=== PATIENT | male | born 1955 | race Caucasian/White ===

== ENCOUNTER 2019-03-25 04:51 | Inpatient (IN) ==
[2019-03-18 16:18] LABS: Appearance,Urine CLEAR; Bilirubin,Urine NEG (NEG); Color,Urine YELLOW; Glucose,Urine (UA) NEGATIVE (NEG); Ketones,Urine NEG (NEG); Leukocyte Esterase,Urine NEG /uL (NEG); Nitrate,Urine NEG (NEG); Protein,Urine NEG (NEG); Specific Gravity,Urine 1.024 (1.000-1.035); Urine Blood NEG mg/dL (<0.03); Urobilinogen,Urine NEG (NEG)
[2019-03-18 17:09] LABS: Basophils # (Auto) 0 K/mcL (0.0-0.3); Basophils % (Auto) 0.5 % (0.0-2.0); Eosinophils # (Auto) 0.1 K/mcL (0.0-0.7); Eosinophils % (Auto) 1.8 % (0.0-7.0); Hematocrit 43.2 % (41.0-55.0); Hemoglobin 14.5 g/dL (13.5-16.5); Lymphocytes # (Auto) 1.6 K/mcL (1.5-4.8); Lymphocytes % (Auto) 22.4 % (15.5-49.0); Mean Cell Volume 89.2 fL (80.0-100.0); Mean Corpuscular HGB Conc 33.6 g/dL (31.0-36.0); Mean Platelet Volume 8.1 fL (7.4-10.4); Monocytes # (Auto) 0.5 K/mcL (0.1-0.9); Monocytes % (Auto) 7.3 % (1.0-12.0); Platelet Count 232 K/mcL (140-440); RBC 4.85 M/mcL (4.50-5.90); Red Cell Distribution Width 12.8 % (11.5-14.5)
[2019-03-18 17:12] LABS: Blood Urea Nitrogen 21 mg/dl (8-23); Calcium 9.7 mg/dl (8.6-10.4); Carbon Dioxide 29 mmol/L (22-30); Chloride 101 mmol/L (96-108); Glomerular Filtration Rate 79; Glucose 135 mg/dL (70-105)
[2019-03-25] MEDS ORDERED: IPRATROPIUM/ALBUTEROL 3 ML AMPUL.NEB NEB PRN ×2 (05:00→08:47)
[2019-03-25] MEDS ORDERED: SCOPOLAMINE 1 PATCH PATCH TOPICAL PRN (05:00)
[2019-03-25 05:27] LABS: POC Blood Urea Nitrogen 21 mg/dl (8-23); POC CO2 27 mmol/L (22-30); POC Calcium, Ionized 1.15 mmol/L (1.16-1.32); POC Chloride 101 mmol/L (96-108); POC Glucose, Random 116 mg/dL (70-105); POC Potassium 3.4 mmol/L (3.3-5.1); POC Sodium 139 mmol/L (133-145)
[2019-03-25] MEDS ORDERED: ceFAZolin 2 GM in DEXTROSE 5% IN WATER 50 ML IV SCH (06:00)
[2019-03-25] MEDS ORDERED: CELECOXIB 200 MG CAPSULE PO SCH (06:00)
[2019-03-25] MEDS ORDERED: oxyCODONE 10 MG TAB.ER.12H PO SCH (06:00)
[2019-03-25] MEDS ORDERED: PREGABALIN 75 MG CAPSULE PO SCH (06:00)
[2019-03-25] MEDS ORDERED: GLYCOPYRROLATE 0.2 MG/ML VIAL IV ONE (07:35)
[2019-03-25] MEDS ORDERED: NALBUPHINE 10 MG/ML AMPUL IV ONE (07:35)
[2019-03-25] MEDS ORDERED: DEXAMETHASONE 10 MG/ML VIAL IV ONE (07:35)
[2019-03-25] MEDS ORDERED: MIDAZOLAM 5 MG/5 ML VIAL IV ONE (07:35)
[2019-03-25] MEDS ORDERED: LIDOCAINE HCL/PF 100 MG/5 ML SYRINGE IV ONE (07:35)
[2019-03-25] MEDS ORDERED: SUCCINYLCHOLINE 20 MG/ML ML IV ONE (07:35)
[2019-03-25] MEDS ORDERED: fentaNYL 250 MCG/5 ML VIAL IV ONE (07:35)
[2019-03-25] MEDS ORDERED: ONDANSETRON 4 MG/2 ML VIAL IV ONE (07:35)
[2019-03-25] MEDS ORDERED: PROPOFOL 200 MG/20 ML VIAL IV ONE (07:35)
[2019-03-25] MEDS ORDERED: PHENYLEPHRINE 10 MG/ML VIAL IV ONE (07:35)
[2019-03-25] MEDS ORDERED: ePHEDrine 50 MG/ML AMPUL IV ONE (07:35)
[2019-03-25] MEDS ORDERED: ROPIVACAINE HCL/PF 30 ML VIAL IJ ONE (07:35)
[2019-03-25] MEDS ORDERED: TRANEXAMIC ACID 1,000 MG/10 ML VIAL IV ONE (07:35)
[2019-03-25] MEDS ORDERED: GENTAMICIN SULFATE 800 MG/20 ML VIAL IR ONE (08:35)
[2019-03-25] MEDS ORDERED: METHOCARBAMOL 1,000 MG/10 ML VIAL IV PRN (08:47)
[2019-03-25] MEDS ORDERED: METOPROLOL TARTRATE 5 MG/5 ML VIAL IV PRN (08:47)
[2019-03-25] MEDS ORDERED: ONDANSETRON 4 MG/2 ML VIAL IV PRN ×2 (08:47→09:42)
[2019-03-25] MEDS ORDERED: MEPERIDINE 25 MG/ML SYRINGE IV PRN (08:47)
[2019-03-25] MEDS ORDERED: ePHEDrine 50 MG/ML AMPUL IV PRN (08:47)
[2019-03-25] MEDS ORDERED: fentaNYL 100 MCG/2 ML VIAL IV PRN (08:47)
[2019-03-25] MEDS ORDERED: PROMETHAZINE 25 MG/ML VIAL IV PRN ×2 (08:47→19:27)
[2019-03-25] MEDS ORDERED: diphenhydrAMINE 50 MG/ML VIAL IV PRN (08:47)
[2019-03-25] MEDS ORDERED: HYDROmorphone 2 MG/ML VIAL IV PRN (08:47)
[2019-03-25] MEDS ORDERED: FLUMAZENIL 0.1 MG/ML ML IV PRN (08:47)
[2019-03-25] MEDS ORDERED: ACETAMINOPHEN 1,000 MG/100 ML BOTTLE IV ONE (08:47)
[2019-03-25] MEDS ORDERED: ATROPINE SULFATE 0.4 MG/ML VIAL IV PRN (08:47)
[2019-03-25] MEDS ORDERED: NALOXONE HCL 0.4 MG/ML VIAL IV PRN (08:47)
[2019-03-25] MEDS ORDERED: LACTATED RINGERS 1,000 ML IV SCH (09:00)
--- NOTE | 2019-03-25 09:40 | Brief Operative Note ---
Date of procedure: 03/25/19 Pre-op diagnosis: right shoulder osteoarthritis, biceps tendonitis Post-op diagnosis: same Procedure: right total shoulder arthroplasty, biceps tenodesis Grafts/Implants: No Anesthesia: GETA Complications: none Surgeon: Craig Brooks Jigsaw Operator: Maddi Pinon Estimated blood loss (cc): 150 Specimens Removed/Pathology: none sent Condition: stable Disposition: PACU
[2019-03-25] MEDS ORDERED: METHOCARBAMOL 750 MG TABLET PO PRN (09:42)
[2019-03-25] MEDS ORDERED: MAGNESIUM HYDROXIDE 30 ML ORAL.SUSP PO PRN (09:42)
[2019-03-25] MEDS ORDERED: ONDANSETRON 4 MG ODT TABLET SL PRN (09:42)
[2019-03-25] MEDS ORDERED: FLEETS ADULT ENEMA PR PRN (09:42)
[2019-03-25] MEDS ORDERED: BISACODYL 10 MG SUPP.RECT PR PRN (09:42)
[2019-03-25] MEDS ORDERED: BENZOCAINE/MENTHOL 1 LOZENGE PO PRN (09:42)
[2019-03-25] MEDS ORDERED: POLYETHYLENE GLYCOL 3350 17 GM PACKET PO PRN (09:42)
[2019-03-25] MEDS ORDERED: TRANEXAMIC ACID 1,000 MG/10 ML VIAL IV SCH (09:42)
--- NOTE | 2019-03-25 09:42 | Discharge Summary ---
Ortho Discharge - TSA - Patient Instructions Diet: Regular Diet Activity: non weight bearing Total Shoulder Protocol: Leave immobilizer in place except for bathing and ROM. Abduction pillow. Continue to wear sling until seen by physician. Codman Pendulum : These exercises use momentum produced by your body to move your shoulder joint. Bend your knees and shift your weight to your front leg, then back, allowing your arm to swing in the same directions. Using the same technique, alternately shift your weight between your right and left legs, allowing your arm to swing from side to side. These exercises are also performed in counterclockwise and clockwise circular motions. Typically these exercises are performed several times per day, for a set number repetitions or minutes, such as 20 times in a row or 5 minutes at a time. Dressing Care: May shower in 2 days Patient Education: Shoulder Arthroplasty (DC) - Follow Up Plan Follow Up Appointments: Maddi Pinon PA-C [Physician Blackjack Supervisor] - 04/09/19 9:00 am Disposition: Home, Self-Care Prognosis: Good Rehab Potential: Good I certify that the patient requires SNF services: No Overall status at discharge: patient is progressing back to baseline
[2019-03-25] MEDS ORDERED: ALBUTEROL SULFATE 1 PUFF INHALER IH PRN (09:45)
--- NOTE | 2019-03-25 10:55 | Operative Note ---
DATE OF OPERATION: 03/25/2019 PREOPERATIVE DIAGNOSES: 1. Right shoulder osteoarthritis. 2. Right shoulder proximal biceps tendinitis. POSTPERATIVE DIAGNOSES: 1. Right shoulder osteoarthritis. 2. Right shoulder proximal biceps tendinitis. PROCEDURE PERFORMED: 1. Right total shoulder arthroplasty. 2. Right shoulder soft tissue biceps tenodesis. SURGEON: Agnieszka Brooks M.D. LOCKER ROOM MANAGER SURGEON: Maddi Pinon PA-C. The PA's assistance was required for the safe and efficient completion of the entire case. This provider's expertise and technical skill were required throughout the case. The PA assisted with preoperative coordination, intraoperative retraction, wound closure, dressing and splint application, as well as postoperative documentation and care coordination. ANESTHESIA: General. ESTIMATED BLOOD LOSS: 150 mL. COMPLICATIONS: None noted. SPECIMENS REMOVED: None. DRAINS: None. IMPLANTS: DePuy CMW2 bone cement 20 grams x1; DePuy Global anchor peg glenoid Premieron X-linked polyethylene size 48; [employer] Unite Porocoat standard stem size 14; [employer] Unite eccentric humeral head size 48 x 21; [employer] Unite anatomic proximal body 135 degrees, size 14 Porocoat. INDICATIONS: The patient has had a long-standing history of worsening pain in the shoulder that has failed conservative treatment. Radiographs have confirmed advanced degenerative joint disease. After a long discussion about treatment options, the patient elected to proceed with a total shoulder arthroplasty. The risks and benefits were discussed with the patient in detail including, but not limited to, the risks of anesthesia, problems with the heart or lungs related to anesthesia, infection, compromise or injury to the nerves and blood vessels, deep venous thrombosis, pulmonary embolism, pneumonia, continued pain after surgery, worsening pain or symptoms after surgery, swelling, loss of motion, instability, fracture, arm length discrepancy, and need for repeat surgery. DESCRIPTION OF PROCEDURE: The patient was seen in the pre-anesthesia waiting room where all questions were answered and the correct side and site were identified and marked. The patient was transferred to the operating room and administered the anesthetic and given pre-operative antibiotics. A time-out was then called. The patient was placed in the modified beach chair position with all prominences well padded. The extremity was prepped and draped from the fingers up to the neck. A standard deltopectoral skin incision was created. Dissection was carried down to the deltopectoral groove and the cephalic vein was isolated medially and retracted laterally with the deltoid. Retractors were placed and the coracobrachialis was split up to the coracoacromial ligament allowing retraction of the conjoined tendon. We split the subscapularis 1 cm medial to the bicipital groove and extended the split into the rotator interval. This was tagged for later repair. The biceps was cut and a soft tissue tenodesis was performed into the anterior shoulder with #2 FiberWire. A capsular release was performed in a posterior subperiosteal direction along the humerus. The humeral head was then dislocated. We established intramedullary access and hand reamed up to get good cortical chatter with the Ubooly AP total shoulder instrumentation. We then used the intramedullary guide and set to about 30 degrees of retroversion. The proximal humerus cut was performed and osteophytes were removed. A metal protector plate was then placed. Attention was then turned to the glenoid. Retractors were placed for optimal visualization and the labrum was excised in its entirety. A centralizing Steinmann pin was placed just into the posterior inferior quadrant in a standard fashion. We reamed over the pin to remove all the cartilage and get to a good base for the prosthesis. The drill was then placed over for the central peg. The glenoid was sized and surface was inspected to confirm conformity. The template base-plate was used to drill the three additional pegs, anchoring each with the anti-rotation peg. All bleeding was stopped with epinephrine soaked sponges. Next, we then cemented the anchor peg glenoid with DBX bone paste placed around the anchor peg and Palacos cement in the three additional peg holes. We allowed the cement to harden and checked the stability and placement of the glenoid. Attention was then turned back to the humerus. We set version and broached up to a stable implant. The humeral head trial was placed and good tension, motion, and stability were obtained at this point. Trials were removed and the final press fit humeral prosthesis was impacted into place with measured version. A final check confirmed adequate motion, tension, and stability. We irrigated with 3 liters of antibiotic saline and closed the subscapularis with #2 FiberWire. We irrigated again and closed the deltopectoral interval with several 0 Vicryl figure of eight sutures. The subcutaneous layer was closed with 2-0 Vicryl and the skin was closed with Dermabond. A sterile pressure dressing was applied and the patient was placed into an abduction sling. All needle and sponge counts were correct. The patient was transferred to the recovery room in stable condition. NATHANIEL:gissel Job ID: [id number] Doc ID: [id number] Agnieszka Brooks MD
--- NOTE | 2019-03-25 10:56 | XRay Report ---
CLINICAL INFORMATION: Postsurgical follow-up TECHNIQUE: Portable AP and axillary views of the right shoulder COMPARISON: None FINDINGS: Status post right shoulder arthroplasty. Alignment is anatomic. There is mild widening of the right acromioclavicular joint with slight elevation of the distal clavicle. Chronicity is not certain. IMPRESSION: Status post right shoulder arthroplasty. Interpreted and Authenticated by: Craig Charles 03/25/19
[2019-03-25] MEDS: HYDROcodone/APAP 10/325MG TABLET PO PRN ×2 (12:30→16:59)
[2019-03-25] MEDS: KETOROLAC 15 MG/ML VIAL IV PRN ×2 (12:30→22:34)
[2019-03-25] MEDS: 0.9 % SODIUM CHLORIDE 10 ML SYRINGE IV SCH ×2 (12:57→22:34)
[2019-03-25] MEDS: LACTATED RINGERS 1,000 ML IV SCH ×3 (12:58→20:10)
[2019-03-25] MEDS: ceFAZolin 1 GM VIAL IV SCH ×2 (14:55→23:28)
[2019-03-25] MEDS ORDERED: SENNOSIDES 1 TABLET PO SCH (21:00)
[2019-03-25] MEDS: Budesonide/Formoterol Fumarate [Symbicort 160-4.5 MCG] Inhaler INH SCH ×2 (22:35→22:38)
[2019-03-26] MEDS: DOCUSATE SODIUM 100 MG CAPSULE PO SCH ×2 (01:10→09:00)
[2019-03-26] MEDS: HYDROcodone/APAP 10/325MG TABLET PO PRN ×4 (01:10→09:53)
[2019-03-26] MEDS: LACTATED RINGERS 1,000 ML IV SCH (04:03)
[2019-03-26] MEDS: 0.9 % SODIUM CHLORIDE 10 ML SYRINGE IV SCH (04:04)
[2019-03-26 06:23] LABS: Hematocrit 40.8 % (41.0-55.0); Hemoglobin 13.6 g/dL (13.5-16.5)
--- NOTE | 2019-03-26 07:35 | Orthopedic Progress Note ---
Subjective Patient information: Note initiated : 03/26/19 at 7:34 am Service Date, if different from initiated Date: [] Patient: Jayce Diaz 63 y/o M admitted on 03/25/19 for Right Reverse Total Shoulder Arthroplasty . Chief Complaint: [] Interval history: doing well. no complaints Objective Vital signs: Vital Signs Temp Pulse Resp BP Pulse Ox 03/26/19 03:50 97.4 F 70 12 121/73 95 03/25/19 23:23 97.5 F 75 12 117/71 92 03/25/19 19:27 97.5 F 91 H 12 137/81 94 03/25/19 17:57 81 03/25/19 16:00 98.0 F 18 L 18 125/79 92 03/25/19 14:13 81 16 94 03/25/19 14:00 97.8 F 78 18 135/82 91 03/25/19 12:35 81 18 133/77 93 03/25/19 12:05 78 18 119/77 95 03/25/19 11:40 81 115/67 89 L 03/25/19 11:25 81 16 138/85 89 L 03/25/19 11:10 80 16 117/70 92 03/25/19 10:55 97.0 F 81 16 121/73 94 03/25/19 10:40 97.2 F 83 15 143/71 96 03/25/19 10:30 76 15 124/69 97 03/25/19 10:20 79 15 133/61 96 03/25/19 10:10 72 14 134/79 98 03/25/19 10:00 76 15 141/80 100 03/25/19 09:55 83 14 146/100 99 03/25/19 09:49 96.7 F L 95 H 12 151/102 97 Intake and Output 03/25/19 03/26/19 03/26/19 21:59 05:59 13:59 Intake Total 920 1555 240 Output Total 476 575 150 Balance 444 980 90 Intake: IV 985 Lactated Ringers 1,000 ml @ 125 985 mls/hr IV .Q8H [facility] Rx#: [id number] Oral 920 570 240 Output: Void Amount 326 575 150 Emesis 150 Other: Meal Dinner Percent of Meal Consumed 50% Feeding Ability Assist with Tray Set Up Urine Appearance Clear Urine Color Dark Yellow Bright Yellow Urine Odor Strong Strong # Voids 1 Weight 236 lb 8 oz Intake & Output: Intake & Output 03/25/19 03/26/19 03/26/19 21:59 05:59 13:59 Intake Total 920 1555 240 Output Total 476 575 150 Balance 444 980 90 Weight 236 lb 8 oz Intake: IV 985 Lactated Ringers 1,000 ml @ 125 985 mls/hr IV .Q8H [facility] Rx#: [id number] Oral 920 570 240 Output: Void Amount 326 575 150 Emesis 150 Other: Meal Dinner Percent of Meal Consumed 50% Feeding Ability Assist with Tray Set Up Urine Appearance Clear Urine Color Dark Yellow Bright Yellow Urine Odor Strong Strong # Voids 1 Incision: Yes healing Incision clean and dry: Yes Dressing: Yes clean, Yes dry, Yes intact Weight bearing status: non Neurological exam IM: Yes alert, Yes normal gait, Yes oriented X3, Yes motor sensory intact, Yes neurovascular intact Extremities exam IM: No calf tenderness, Yes Foot pink and warm, Yes neurovascular intact - Labs CBC & BMP: 03/26/19 04:50 03/18/19 13:43 Labs: 03/26/19 03/18/19 04:50 13:43 Hgb 13.6 14.5 Hct 40.8 L 43.2 Assessment and Plan (1) Osteoarthritis, shoulder pod 1 s/p tsa pain control pt sling home today Status: Acute
[2019-03-26] MEDS ORDERED: LISINOPRIL 10 MG TABLET PO SCH (09:00)
[2019-03-26] MEDS ORDERED: CHLORTHALIDONE 25 MG TABLET PO SCH (09:00)
[2019-03-26] MEDS ORDERED: amLODIPine 10 MG TABLET PO SCH (09:00)
[2019-03-26] MEDS ORDERED: TAMSULOSIN 0.4 MG CAPSULE PO SCH (09:00)
[2019-03-26] MEDS: KETOROLAC 15 MG/ML VIAL IV PRN (09:54)
[2019-03-26] MEDS ORDERED: FLU VACC QS2019-20(6MOS UP)/PF 60 MCG/0.5 ML SYRINGE IM ONE (10:00)
== END 2019-03-26 11:05 | disposition home or self-care (01) | DRG 483 ==
LOC: MEDSUR 04:51
PROVIDERS: ADMIT Orthopaedic Surgery Sports Medicine; ATTEND Orthopaedic Surgery Sports Medicine